=== PATIENT | male | born 2000 | race Two or more races ===

== ENCOUNTER 2024-01-05 16:49 | Emergency (ER) | payer BC ==
[2024-01-05 17:12] VITALS: O2SAT 99
[2024-01-05 17:55] LABS: BASOPHILS % (AUTO) 0.5 %; EOSINOPHILS # (AUTO) 0.1 10^3/uL (0.0-0.7); EOSINOPHILS % (AUTO) 1.4 %; HCT - HEMATOCRIT 45.1 % (42.0-52.0); HGB - HEMOGLOBIN 15.5 g/dL (14.0-18.0); LYMPHOCYTES # (AUTO) 3.1 10^3/uL (1.5-3.5); LYMPHOCYTES % (AUTO) 40.7 %; MEAN CORPUSCULAR HEMOGLOBIN 30.1 pg (27.0-31.0); MEAN CORPUSCULAR HGB CONC 34.4 g/dL (32.0-36.0); MEAN CORPUSCULAR VOLUME 87.6 fL (80.0-94.0); MONOCYTES # (AUTO) 0.4 10^3/uL (0.0-1.0); MONOCYTES % (AUTO) 5.5 %; NEUTROPHILS # (AUTO) 3.9 10^3/uL (1.5-6.6); NEUTROPHILS % (AUTO) 51.6 %; PLT - PLATELET COUNT 321 10^3/uL (130-450); RED BLOOD COUNT 5.15 10^6/uL (4.70-6.10); RED CELL DISTRIBUTION WIDTH 12.5 % (12.0-15.0); WHITE BLOOD COUNT 7.6 x10^3/uL (4.8-10.8)
[2024-01-05 18:12] LABS: ALBUMIN 4.6 g/dL (3.2-5.5); ALBUMIN/GLOBULIN RATIO 1.4 (1.0-2.2); BILIRUBIN,TOTAL 0.8 mg/dL (0.2-1.0); CALCIUM 9.7 mg/dL (8.5-10.3); CREATININE 0.9 mg/dL (0.6-1.3); MAGNESIUM 1.7 mg/dL (1.7-2.3); POTASSIUM 3.6 mmol/L (3.5-4.5); TOTAL PROTEIN 7.9 g/dL (6.4-8.9)
--- NOTE | 2024-01-05 18:52 | ED Physician Documentation ---
PD HPI ABD PAIN - Stated complaint Stated Complaint: ABD PX - Chief complaint Chief Complaint: Abd Pain - Additional information Additional information: 23-year-old male with no pertinent past medical history presents emergency department for right upper quadrant pain. Patient says that this started about 2 days ago after eating [employer] he had 2 episodes of nausea and vomiting this morning no fevers or chills he said that he had a bowel movement this morning but it did not feel right it was formed no diarrhea brown and not melanotic or bloody. PD PAST MEDICAL HISTORY - Past Medical History Past Medical History: No - Present Medications Home Medications: Ambulatory Orders Medication Instructions Recorded Confirmed Ondansetron Odt [Zofran Odt] 4 mg TL Q6H PRN #10 tablet 01/05/24 - Allergies Allergies/Adverse Reactions: Allergies Allergy/AdvReac Type Severity Reaction Status Date / Time No Known Drug Allergies Allergy Verified 01/05/24 16:59 - Social History Does the pt smoke?: No Smoking Status: Never smoker - POLST Patient has POLST: No PD ED PE NORMAL - Vitals Vital signs reviewed: Yes - General General: Alert and oriented X 3, No acute distress, Well developed/nourished - Abdomen Abdomen: Normal bowel sounds, Soft, Non distended, No organomegaly, Other (RUQ tenderness) - Back Back: No CVA TTP - Derm Derm: Normal color, Warm and dry, No rash Results - Vitals Vitals: Vital Signs - 24 hr 01/05/24 01/05/24 17:00 19:30 Temperature 36.7 C 36.7 C Heart Rate 103 H 91 Respiratory 16 16 Rate Blood Pressure 132/67 H 114/68 O2 Saturation 99 99 Oxygen O2 Source Room air - Labs Labs: Laboratory Tests 01/05/24 01/05/24 17:40 17:40 WBC 7.6 RBC 5.15 Hgb 15.5 Hct 45.1 MCV 87.6 MCH 30.1 MCHC 34.4 RDW 12.5 Plt Count 321 MPV 9.0 Neut # (Auto) 3.9 Lymph # (Auto) 3.1 [place] # (Auto) 0.4 Eos # (Auto) 0.1 Baso # (Auto) 0.0 Absolute Nucleated RBC 0.00 Nucleated RBC % 0.0 Sodium 137 Potassium 3.6 Chloride 102 Carbon Dioxide 27 Anion Gap 8.0 BUN 8 Creatinine 0.9 Estimated GFR (MDRD) 103 Glucose 112 H Calcium 9.7 Magnesium 1.7 Total Bilirubin 0.8 AST 23 ALT 41 Alkaline Phosphatase 100 Total Protein 7.9 Albumin 4.6 Globulin 3.3 Albumin/Globulin Ratio 1.4 Lipase 21 - Rads (name of study) Limited abdominal ultrasound Relevant Findings:: Final report received, EMP independent interpretation of test, Other (Cholelithiasis without sonographic evidence of acute cholecystitis) PD Medical Decision Making - ED course ED course: 23 y/o patient with RUQ abdominal pain, consistent with Cholelithiasis. Abdominal exam without peritoneal signs. No evidence of acute abdomen at this time. Well appearing. Given RUQ US findings patient likely has biliary colicn with no signs of acute cholecystitis or cholangitis. Less likely to represent acute pancreatitis (neg lipase), PUD (including gastric perforation), acute infectious processes (pneumonia, hepatitis, pyelonephritis), atypical appendicitis, vascular catastrophe, bowel obstruction or viscus perforation, or acute coronary syndrome. Presentation not consistent with other acute, emergent causes of abdominal pain at this time. Patient declines any need for Tylenol ibuprofen at this point in time he is given Zofran here in the emergency department and a prescription of Zofran was sent to his preferred pharmacy he still to follow-up with his primary care provider return precautions given. Departure - Departure Disposition: 01 Home, Self Care Clinical Impression: Gallstone Qualifiers: Cholecystitis presence: without cholecystitis Biliary obstruction: without biliary obstruction Qualified Code(s): K80.20 - Calculus of gallbladder without cholecystitis without obstruction Instructions: Gallstones Prescriptions: Ondansetron Odt [Zofran Odt] 4 mg TL Q6H PRN #10 tablet PRN Reason: Nausea / Vomiting Comments: Thank you for trusting us with your care. You have a gallstone, please avoid high fatty food and follow up with your primary care provider to let them know about todays ER visit. PLease take Tylenol and Ibuprofen for pain and discomfort and I sent a prescription of Zofran to [facility] for your nausea. Forms: PCP List Discharge Date/Time: 01/05/24 19:32
[2024-01-05] MEDS: ONDANSETRON 4 MG/2 ML VIAL IVP STA (19:06)
[2024-01-05 19:31] VITALS: BP 114/68
--- NOTE | 2024-01-05 19:32 | Ultrasound Report ---
PROCEDURE: Abdomen Limited INDICATIONS: RUQ pain TECHNIQUE: Real-time focused scanning was performed of the abdomen, with image documentation. COMPARISONS: None. FINDINGS: Liver: Suboptimal visualization of the liver due to poor acoustic windows and overlying bowel gas. N o gross abnormalities identified. Gallbladder: Cholelithiasis. No wall thickening or pericholecystic fluid. Sonographic Meyer sign is not reported. Biliary ducts: Intrahepatic bile ducts are non-dilated. Extrahepatic bile duct is not well visualiz ed, approximately measures 5.6 mm. Normal is 6-7 mm or less in diameter, or 10 mm or less post-cholec ystectomy. Pancreas: Not well visualized due to overlying bowel gas. Right kidney: Normal in size and echotexture. Right kidney measures 10.1 cm long. No hydronephrosis or nephrolithiasis. No solid masses. No complex renal cystic lesions which require follow-up. IMPRESSION: Cholelithiasis without sonographic evidence of acute cholecystitis. Suboptimal visualization of the liver and pancreas. Reviewed by: Diana Kumari MD, PhD on 01/05/2024 7:31 PM PDT Approved by: Diana Kumari MD, PhD on 01/05/2024 7:31 PM PDT Station ID: [id number]
== END 2024-01-05 19:32 | disposition home or self-care (01) ==
LOC: ED 16:49
DX: K80.20 Calculus of gallbladder without cholecystitis without obstruction (principal)
CPT/HCPCS: 36415; 80053; 83690; 83735; 85025; 96374; 99284